=== PATIENT | male | born 1960 | race Caucasian/White ===

== ENCOUNTER → 2017-04-25 | Outpatient (CLI) | payer BC ==
[~2017-04-25] MED LIST: CETI10TA84 PO; FLUO0.05 TOP; HMLI SC; INSDGIPEN SC; LACT12CR18 TOP; MINO2SOL TOP; SILD100T PO; SYN200 PO; TRIA0.1O12 TOP
== END | disposition home or self-care (01) ==
LOC: C.PATHSPEC 14:24
DX: L82.0 Inflamed seborrheic keratosis (principal)